=== PATIENT | male | born 1945 | race Caucasian/White ===

== ENCOUNTER 2020-07-28 18:34 | Emergency (ER) | payer OTHER ==
[~2020-07-28] VITALS: Ht 182.9 cm; Wt 122.5 kg
[2020-07-28] MEDS ORDERED: SODIUM BICARBONATE 8.4% INJ 50ML SYRINGE IV ONE (18:35)
[2020-07-28] MEDS ORDERED: EPINEPHrine HCL 1 MG/10 ML SYRG IV ONE (18:35)
[2020-07-28 18:42] VITALS: BP 0/0
== END 2020-07-28 21:05 ==
LOC: EDBD 18:34 → ER 18:34
DX: I46.9 Cardiac arrest, cause unspecified (principal); I10 Essential (primary) hypertension; E78.5 Hyperlipidemia, unspecified; R06.89 Other abnormalities of breathing
CPT/HCPCS: 31500; 92950; 99285; J0171